=== PATIENT | female | born 1990 | race Caucasian/White ===

== ENCOUNTER → 2022-09-08 16:15 | Outpatient (CLI) | payer OTHER, MEDICAID, SELFPAY ==
--- NOTE | 2022-09-08 | DI.US.S_ITS ---
PROCEDURE: US PELVIC COMPLETE INDICATIONS: PELVIC AND PERINEAL PAIN TECHNIQUE: Real-time scanning was performed of the pelvic organs, with image documentation. Additional endovaginal scanning was necessary due to incomplete visualization of the adnexal and endometrial structures by transabdominal scanning. COMPARISON: None. FINDINGS: Uterus: Anteverted. 6.8 x 3.9 x 5.2 cm. IUD within normal limits. Endometrium is 4 mm. Ovaries: Right ovary is mildly enlarged measuring 21 cc. Left ovary is surgically absent. Color Doppler flows are present. IMPRESSION: Mildly enlarged right ovary without current evidence of torsion. Left ovary surgically absent. No pathologic free fluid. IUD is visualized within normal limits. Dictated by: Gil Gordon M.D. on 09/08/2022 at 17:13 Approved by: Gil Gordon M.D. on 09/08/2022 at 17:14
== END ==
PROVIDERS: PCP Family Medicine; Referring Provider Family Medicine; Visit Provider Family Medicine
DX: N83.8 Other noninflammatory disorders of ovary, fallopian tube and broad ligament (principal); R10.2 Pelvic and perineal pain; N92.0 Excessive and frequent menstruation with regular cycle; Z97.5 Presence of (intrauterine) contraceptive device; Z90.721 Acquired absence of ovaries, unilateral
CPT/HCPCS: 76830; 76856; 93976